=== PATIENT | male | born 1980 | race Caucasian/White ===

== ENCOUNTER 2016-07-13 13:41 | Emergency (ER) | payer OTHER ==
[2016-07-13 14:25] VITALS: O2SAT 98
[2016-07-13] MEDS ORDERED: Sodium Chloride 0.9% 1000 ML 1,000 ML IV STA (14:58)
[2016-07-13] MEDS ORDERED: Levofloxacin 500MG/100ML D5W 100 ML IV ONE ×2 (15:01→15:10)
[2016-07-13] MEDS ORDERED: Sodium Chloride 0.9% 1000 ML 1,000 ML ONE (15:10)
[2016-07-13 15:24] LABS: BASOPHIL % 0.5 % (0.0-0.4); Eosinophil % 3.7 % (0.00-5.0); Granulocytes % 59.5 % (36.0-66.0); Mean Cell Volume 85.2 fl (78-100); Mean Corpuscular Hemoglobin 30.7 pg (26-32); Mean Platelet Volume 10.5 fl (6-9.5); Monocytes % 15.3 % (0.0-12.0); Platelet Count 215 K/mm3 (150-450); Red Blood Count 5.08 M/mm3 (4.1-5.6); Red Cell Distribution Width 12.8 % (11.5-14.0)
[2016-07-13 15:40] LABS: ANION GAP 13.5 MEQ/L (5-15); BLOOD UREA NITROGEN 11 mg/dL (9-20); CHLORIDE 103 mEq/L (98-107); Carbon Dioxide 25.5 mEq/L (21-32); Glucose 101 MG/DL (70-110); Potassium 3.7 mEq/L (3.5-5.1); SODIUM 138 mEq/L (136-145)
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
[2016-07-13 16:19] VITALS: BP 137/88; PULSE 70
[2016-07-13 16:54] LABS: Bacteria None Seen; Clue Cells None Seen; Trichomonas None Seen; Yeast None Seen
[2016-07-13 18:19] LABS: CHLAMYDIA URINE NEGATIVE; GC URINE NEGATIVE
[2016-07-14 23:58] LABS: Herpes Sim.Vir.1&2 Ql.PCR Swab Negative (Negative)
== END 2016-07-13 16:39 | disposition left against medical advice (07) ==
LOC: ED 13:41
DX: N49.2 Inflammatory disorders of scrotum (principal); T63.301A Toxic effect of unspecified spider venom, accidental (unintentional), initial encounter; Z20.5 Contact with and (suspected) exposure to viral hepatitis
CPT/HCPCS: 36000; 36415; 80048; 80307; 85025; 87040; 87070; 87077; 87186; 87210; 87491; 87529; 87591; 96360; 96365; 99285; J1956

== ENCOUNTER 2017-10-10 19:09 | Emergency (ER) | payer OTHER ==
[2017-10-10] MEDS ORDERED: Sodium Chloride 0.9% 1000 ML 1,000 ML IV STA (19:55)
[2017-10-10] MEDS ORDERED: Zofran 4 MG/2 ML VIAL IV ONE (19:55)
[2017-10-10] MEDS ORDERED: Zosyn INJ 4.5 GM in D5w 100ML Mini Bag 100 ML 100 ML IV ONE (20:00)
[2017-10-10] MEDS ORDERED: TORAdol 30 mg Injection IV ONE (20:01)
[2017-10-10] MEDS ORDERED: ULTRAM 50 MG PO ONE (20:01)
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
[2017-10-10 20:23] LABS: BASOPHIL % 0.4 % (0.0-0.4); Basophil (Absolute #) 0.02 (0-0.4); Eosinophil % 4.3 % (0.00-5.0); Eosinophil (Absolute #) 0.23 (0-0.5); Granulocyte Absolute (ANC) 3.06 (1.4-6.9); Granulocytes % 56.5 % (36.0-66.0); Hematocrit 42.7 % (42-50); Hemoglobin 14.8 gm/dl (12.5-18.0); Lymphocyte (Absolute #) 1.51 (1.0-4.6); Lymphocytes % 27.9 % (24.0-44.0); Mean Cell Volume 82.9 fl (78-100); Mean Corpuscular Hemoglobin 28.7 pg (26-32); Mean Corpuscular Hgb Concent. 34.7 g/dl (32-36); Mean Platelet Volume 10.6 fl (6-9.5); Monocyte (Absolute #) 0.59 (0.0-1.3); Monocytes % 10.9 % (0.0-12.0); Platelet Count 198 K/mm3 (150-450); Red Blood Count 5.15 M/mm3 (4.1-5.6); Red Cell Distribution Width 13.1 % (11.5-14.0); White Blood Count 5.4 K/mm3 (4.0-10.5)
[2017-10-10 20:35] LABS: ANION GAP 11.4 MEQ/L (5-15); BLOOD UREA NITROGEN 7 mg/dL (9-20); CHLORIDE 104 mmol/L (98-107); Calcium 8.7 mg/dL (8.4-10.2); Carbon Dioxide 29 mmol/L (22-30); Glucose 110 mg/dL (74-106); Potassium 3.3 mmol/L (3.5-5.1); SODIUM 141 mmol/L (137-145)
[2017-10-10] MEDS ORDERED: ULTRAM 50 MG ONE (20:45)
[2017-10-10] MEDS ORDERED: Sodium Chloride 0.9% 1000 ML 1,000 ML ONE (20:45)
[2017-10-10] MEDS ORDERED: TORAdol 30 mg Injection ONE (20:45)
[2017-10-10] MEDS ORDERED: Zosyn INJ IV ONE (20:45)
[2017-10-10] MEDS ORDERED: Zofran 4 MG/2 ML VIAL ONE (20:45)
[2017-10-10] MEDS ORDERED: Klor Con 10 MEQ PO ONE ×2 (20:46→21:20)
[2017-10-10] MEDS ORDERED: D5w 100ML Mini Bag 100 ML 100 ML IV ONE (20:48)
[2017-10-10 21:38] VITALS: BP 132/82
[2017-10-10 22:44] VITALS: O2SAT 97
[2017-10-10 22:50] VITALS: PULSE 82
--- NOTE | 2017-10-11 08:45 | XRAY ---
Indication: Erythema and swelling 4 days. No known injury. Comparison: None 3 nonweightbearing views of the left foot demonstrates tiny posterior heel spur. No other bony, articular, or soft tissue abnormalities.
== END 2017-10-10 22:52 | disposition home or self-care (01) ==
LOC: ED 19:09
DX: L03.116 Cellulitis of left lower limb (principal); M79.672 Pain in left foot; R11.2 Nausea with vomiting, unspecified; R19.7 Diarrhea, unspecified; Y04.0XXA Assault by unarmed brawl or fight, initial encounter
CPT/HCPCS: 36000; 36415; 73630; 80048; 85025; 87040; 96360; 96361; 96365; 96374; 96375; 99284; J1885; J2405; J2543; A9270-GY

== ENCOUNTER 2019-10-02 22:48 | Emergency (ER) | payer OTHER | END 2019-10-02 23:04 | disposition left against medical advice (07) | LOC: ED 22:48 | DX: Z53.29 Procedure and treatment not carried out because of patient's decision for other reasons (principal) | CPT/HCPCS: 99281 ==

== ENCOUNTER 2020-12-02 20:42 | Emergency (ER) | payer OTHER ==
[2020-12-02 21:29] LABS: ALBUMIN 5.4 g/dL (3.5-5.0); ALKALINE PHOSPHATASE 118 U/L (38-126); BLOOD UREA NITROGEN 28 mg/dL (9-20); CHLORIDE 95 mmol/L (98-107); Calcium 10.6 mg/dL (8.4-10.2); Carbon Dioxide 17 mmol/L (22-30); EST GLOMERULAR FILTRATION RATE 44.6 ML/MIN; ETHYL ALCOHOL < 10 mg/dL (0-10); Glucose 265 mg/dL (74-106); Potassium 3.4 mmol/L (3.5-5.1); SGOT/AST 93 U/L (17-59); SGPT/ALT 77 U/L (0-50); SODIUM 135 mmol/L (137-145); Total Protein 9.3 g/dL (6.3-8.2)
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
[2020-12-02 21:37] LABS: Absolute Neutrophil Ct (ANC) 5.78 (1.4-6.9); BASOPHIL % 0.3 % (0.0-0.4); Basophil (Absolute #) 0.03 (0-0.4); Eosinophil (Absolute #) 0.09 (0-0.5); Hematocrit 49.4 % (42-50); Hemoglobin 17.8 gm/dl (12.5-18.0); Lymphocyte (Absolute #) 1.93 (1.0-4.6); Lymphocytes % 21.5 % (24.0-44.0); Mean Cell Volume 80.1 fl (78-100); Mean Corpuscular Hemoglobin 28.8 pg (26-32); Monocyte (Absolute #) 1.13 (0.0-1.3); Monocytes % 12.6 % (0.0-12.0); Neutrophil % 64.6 % (36.0-66.0); Platelet Count 271 K/mm3 (150-450); Red Blood Count 6.17 M/mm3 (4.1-5.6); Red Cell Distribution Width 12.1 % (11.5-14.0)
[2020-12-02] MEDS ORDERED: Geodon 20 MG INJ IM ONE ×2 (21:49→21:50)
[2020-12-02] MEDS ORDERED: Sterile H2O 10 ml IJ ONE (21:52)
[2020-12-02 22:09] LABS: Appearance CLOUDY (CLEAR); Bacteria RARE /HPF (NEGATIVE); Bilirubin SMALL (NEGATIVE); Blood NEGATIVE Ery/ul (0-5); Epithelial Cells RARE /HPF (FEW); Glucose NEGATIVE (NEGATIVE); Ketones TRACE (NEGATIVE); Leukocyte Esterase NEGATIVE (NEGATIVE); Mucus MANY /HPF (NEGATIVE); Nitrite NEGATIVE (NEGATIVE); Protein,Urine Dip >=500 (Negative); RBC 0-2 /HPF (0-2); Specific Gravity 1.031 (1.005-1.025); Urobilinogen 2 mg/dL (0-1)
[2020-12-02] MEDS ORDERED: Sodium Chloride 0.9% 1000 ML 1,000 ML IV STA (22:50)
[2020-12-02] MEDS ORDERED: Sodium Chloride 0.9% 1000 ML 1,000 ML ONE (22:51)
[2020-12-02 23:47] LABS: Barbiturate,Urine NEGATIVE (NEGATIVE); Benzodiazepine,Urine NEGATIVE (NEGATIVE); Cocaine,Urine NEGATIVE (NEGATIVE); Methadone,Urine NEGATIVE (NEGATIVE); Opiate,Urine NEGATIVE (NEGATIVE); PCP,Urine NEGATIVE (NEGATIVE); THC,Urine NEGATIVE (NEGATIVE)
[2020-12-02 23:48] LABS: Amphetamine,Urine POSITIVE (NEGATIVE)
[2020-12-03] MEDS ORDERED: Sodium Chloride 0.9% 1000 ML 1,000 ML IV STA (00:07)
[2020-12-03] MEDS ORDERED: Sodium Chloride 0.9% 1000 ML 1,000 ML ONE (00:09)
[2020-12-03 02:04] VITALS: BP 140/90; PULSE 95
[2020-12-03 03:29] VITALS: O2SAT 97
== END 2020-12-03 02:05 | disposition home or self-care (01) ==
LOC: ED 20:42
DX: F15.10 Other stimulant abuse, uncomplicated (principal)
CPT/HCPCS: 36000; 36415; 80053; 80307; 81001; 84484; 85025; 87086; 93005; 96360; 96372; 99284; G0480; J3486